=== PATIENT | male | born 1990 | race Caucasian/White ===

== ENCOUNTER 2020-12-26 00:19 | Emergency (ER) | payer MEDICAID, SELFPAY ==
[2020-12-26 00:46] VITALS: BP 131/70; PULSE 109; RESP 14; TEMP 37.4; O2SAT 96; BMI 28.0
--- NOTE | 2020-12-26 01:08 | ED_ITS ---
HPI - URI/Sore Throat General Chief Complaint: Upper Respiratory Symptoms Stated Complaint: covid symptoms Time Seen by Provider: 12/26/20 01:08 Source: patient Mode of arrival: ambulatory Limitations: no limitations History of Present Illness HPI Narrative: 30 y/o male presenting for evaluation of generalized body aches and pain, dry cough and not feeling well for the past 2 days. His son just tested positive for COVID yesterday. He is easily fatigued. He has no difficulty breathing or chest pain. He has no underlying medical problems. MD elicited complaint: cough and other (body aches) Onset (ago): day(s) (2) Consistency: constant Severity: moderate Able to tolerate fluids by mouth: Yes Exacerbating factors: exertion Relieving factors: nothing Context: sick contacts Associated symptoms: chills, myalgias, diaphoresis, headache, nasal congestion and cough Treatments prior to arrival: none Related Data Allergies Allergy/AdvReac Type Severity Reaction Status Date / Time No Known Allergies Allergy Verified 12/26/20 00:46 Review of Systems Review of Systems: Constitutional: No Fever, + Chills ENT/Mouth: + sore throat, No Rhinorrhea, No Swallowing Difficulty Cardiovascular: No Chest Pain, No SOB, No Orthopnea, No Edema Respiratory: + Cough, No Sputum, No Wheezing, No dyspnea Gastrointestinal: No Nausea, No Vomiting, No Diarrhea, No abdominal Pain Genitourinary: No Dysuria, No Urinary Frequency, No Hematuria Musculoskeletal: No joint pain, + Myalgias Skin: No Skin Lesions, No rash Neuro: No Weakness, No Numbness, No Dizziness, + Headache Physical Exam Vital Signs: Vital Signs: Last Vital Signs Temp 99.3 F 12/26/20 00:46 Pulse 109 H 12/26/20 00:46 Resp 14 12/26/20 00:46 BP 131/70 12/26/20 00:46 Pulse Ox 96 12/26/20 00:46 Body Mass Index 28.0 Appearance: Alert. Oriented X3. No acute distress. Eyes: Normal inspection ENT: Pharynx normal. Neck: Normal inspection. Neck supple. CVS: Normal heart rate and rhythm. Pulses normal. Respiratory: No respiratory distress. Breath sounds normal. Skin: Skin warm and dry. Normal skin color. Normal skin turgor. No rashes. Extremities: No lower extremity edema. Neuro: Oriented X 3. Nonfocal Course Course Course Narrative: 30 yo healthy male presenting with body aches, dry cough and not feeling well. Fatigues easily but no SOB, or respiratory distress. He appears nontoxic. Son has COVID-19. Mild tachycardia on arrival, normal rate on exam. Lungs are clear. COVID swab is POSITIVE. He was counseled on diagnosis, management and warning signs to prompt urgent re-evaluation. Stable for d/c home with supportive care. MDM - URI/Sore Throat Lab Data Labs: Lab Results 12/26/20 Range/Units 00:51 COVID-19 ([facility]) Positive A (Negative) COVID-19 Clin Com See Note Critical Care Time Critical Care Time Critical Care Time: No Discharge Plan Discharge Clinical Impression: COVID-19 Patient Disposition: Home, Self-Care Instructions: COVID-19 (Coronavirus Disease 2019) (ED) Additional Instructions: You were found to be COVID-19 POSITIVE today. Your exam and oxygen levels were normal. Rest. Drink plenty of fluids. Do not go out in public for the next 10 days. Take over the counter cold/flu medications as needed for your symptoms. Take Tylenol and/or Motrin as needed for fevers and body aches. Follow up with your doctor this week. If you shortness of breath worsens , if you develop difficulty breathing or any other concerning symptom come back to the ER for further evaluation. Print Language: [place]
[2020-12-26 01:09] LABS: IDNOW Serial# 9DD0AD1C
[2020-12-26 01:11] LABS: COVID-19 Test Positive (Negative)
== END 2020-12-26 01:50 | disposition home or self-care (01) ==
LOC: HO.ED 01:51
PROVIDERS: Emergency Provider Internal Medicine
DX: U07.1 COVID-19 (principal); M79.10 Myalgia, unspecified site; R05 Cough
CPT/HCPCS: 36415; 87635; 99283

== ENCOUNTER 2020-12-30 15:19 | Emergency (ER) | payer MEDICAID, SELFPAY ==
[2020-12-30 16:21] VITALS: BP 132/74; PULSE 109; RESP 20; TEMP 37.1; O2SAT 99; BMI 29.0
--- NOTE | 2020-12-30 19:15 | ED.GENADULT ---
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 Not eating and vomiting and is weak, shortness of breath. No Asthma no diabetes. Onset (ago): day(s) (8) Severity: mild Relieving factors: none Exacerbating factors: none Associated symptoms: cough, nausea/vomiting and weakness Related Data Previous Rx's Medication Instructions Recorded ondansetron HCl 4 mg tablet 4 mg PO Q8H PRN #10 tab 12/30/20 (Zofran) gtnimncdaygul-DN-hnbqrzefrrh 2.5 20 ml PO Q4H PRN #118 ml 12/30/20 mg-5 mg-50 mg/5 mL oral liquid (Robitussin Cough and Cold CF) Allergies Allergy/AdvReac Type Severity Reaction Status Date / Time No Known Allergies Allergy Verified 12/26/20 00:46 Review of Systems Constitutional: Constitutional: Reports no additional constitutional complaints Eyes: Eyes: Reports no additional eye complaints ENT: Denies dizziness Cardiovascular: Cardiovascular: Reports no additional cardiovascular complaints Respiratory: Respiratory: Reports as per HPI Gastrointestinal: Gastrointestinal: Reports no additional gastrointestinal complaints Musculoskeletal: Musculoskeletal: Reports no additional musculoskeletal complaints Integumentary/Breasts: Skin/Breast: Denies rash Neurologic: Reports system reviewed and no additional complaints, except as documented, Denies dizziness and Denies Sensory deficit (Neuro) Psychiatric: Psychiatric: Denies anxiety [facility] Social History Social History Advance Directives: No Advance Directives Information Provided: No Physical Exam Vital Signs: Vital Signs: Last Vital Signs Temp 98.7 F 12/30/20 16:21 Pulse 109 H 12/30/20 16:21 Resp 20 12/30/20 16:21 BP 132/74 12/30/20 16:21 Pulse Ox 99 12/30/20 16:21 Body Mass Index 29.0 Const: General: healthy appearing Nutritional Appearance: average body habitus Orientation/consciousness: oriented to person and patient oriented x3 Limitations: no limitations HENMT: Head: Yes normal to inspection Ears: external ears normal General nose exam: Normal external nose present Mouth: Normal oral and palatal mucosa present and oropharynx normal Throat: Yes posterior oropharynx normal Eyes: General: appearance normal, both eyes and all related structures Neck: Other: supple Neck: Yes normal visual inspection Chest: Chest palpation & inspection: normal inspection of the chest Resp: Auscultation: clear to auscultation bilaterally Cardio: Jugular venous distension: no JVD Rate: regular rate Rhythm: regular rhythm Heart sounds: S1 normal heart sound present and S2 normal heart sound present GI: Inspection: Yes normal to inspection Palpation (GI): Soft to palpation, nontender and No hepatosplenomegaly present Auscultation: normal bowel sounds : General: Yes no CVA tenderness Back/Spine/Pelvis: Back: no CVA tenderness Skin: General skin exam: no rashes or lesions noted Neuro: General: oriented to person and patient oriented x3 Cranial nerves: Yes CN's II-XII intact bilaterally Motor exam (neuro): 5/5 motor strength present throughout Sensory Exam: No Sensory deficit (Neuro) Extrem: General: Yes normal to inspection Psych: Appearance: grossly normal Course Reevaluation(s) Reevaluation #1: patient with COVID, looking well, will dc home Time: 21:08 Medical Decision Making Lab Data Result diagrams: 12/30/20 20:09 12/30/20 20:09 Labs: Lab Results 12/30/20 12/30/20 Range/Units 20:09 20:09 WBC 5.3 (4.8-10.8) X10*3/uL RBC 5.62 (4.60-5.80) X10*6/uL Hgb 14.6 (14.0-18.0) g/dl Hct 45.9 (42-52) % MCV 81.7 (80-98) fL MCH 26.0 L (27.0-33.0) pg MCHC 31.8 (31.0-36.0) g/dl RDW 13.4 (11.0-16.0) % Plt Count 224 (160-400) X10*3/uL MPV 9.4 (9.4-12.4) fL Immature Gran % (Auto) 0.2 (0.0-0.4) % Neut % (Auto) 60.4 (45-73) % Lymph % (Auto) 27.2 (20-40) % [place]oshone % (Auto) 12.0 H (2-11) % Eos % (Auto) 0.0 (0-4) % Baso % (Auto) 0.2 (0-2) % Lymph # (Auto) 1.4 (1.2-4.9) X10*3/uL [place] # (Auto) 0.6 (0.1-1.2) X10*3/uL Eos # (Auto) 0.0 (0.0-0.4) X10*3/uL Baso # (Auto) 0.0 (0.0-0.2) X10*3/uL Abs Immat Gran (auto) 0.01 (0.00-0.03) X10*3/uL Absolute Neuts (auto) 3.2 (2.0-8.3) X10*3/uL Absolute Nucleated RBC 0.000 (0.0-0.012) X10*3/uL Nucleated RBC % (auto) 0.0 (0.0-0.2) /100WBC Sodium 135 (135-145) mmol/L Potassium 4.1 (3.3-5.1) mmol/L Chloride 103 (96-108) mmol/L Carbon Dioxide 18 L (22-29) mmol/L Anion Gap 18 (12-20) BUN 9 (9-16) mg/dL Creatinine 0.84 (0.5-1.4) mg/dL Estim Creat Clear Calc 129.0 Estimated GFR > 60 Random Glucose 83 (60-115) mg/dL Calcium 8.7 (8.4-10.2) mg/dL Discharge Plan Discharge Clinical Impression: COVID-19 Patient Disposition: Home, Self-Care Instructions: COVID-19 (Coronavirus Disease 2019) (ED) Prescriptions: New ondansetron HCl [Zofran] 4 mg tablet 4 mg PO Q8H PRN (Reason: nausea and vomiting) Qty: 10 RF: 0 Robitussin Cough and Cold CF 2.5-5-50 mg/5 mL liquid 20 ml PO Q4H PRN (Reason: cough) Qty: 118 RF: 0 Referrals: Physician,Unknown [Primary Care Provider] - 1 week
[2020-12-30] MEDS: Ondansetron ODT 4 MG TAB.RAPDIS TRANSLINGU (20:10)
[2020-12-30 20:15] LABS: MANUAL DIFF FLAG NO
[2020-12-30 20:20] LABS: Basophils Percent Auto 0.2 % (0-2); Hematocrit 45.9 % (42-52); Hemoglobin 14.6 g/dl (14.0-18.0); Imm Gran Abs Auto 0.01 X10*3/uL (0.00-0.03); Imm Gran Pct Auto 0.2 % (0.0-0.4); Lymphocytes Absolute Auto 1.4 X10*3/uL (1.2-4.9); Lymphocytes Percent Auto 27.2 % (20-40); Mean Corpuscular HGB Conc 31.8 g/dl (31.0-36.0); Mean Corpuscular Volume 81.7 fL (80-98); Mean Platelet Volume 9.4 fL (9.4-12.4); Monocytes Absolute Auto 0.6 X10*3/uL (0.1-1.2); Neutrophils Absolute Auto 3.2 X10*3/uL (2.0-8.3); Neutrophils Percent Auto 60.4 % (45-73); Platelet Count 224 X10*3/uL (160-400); Red Blood Count 5.62 X10*6/uL (4.60-5.80); Red Cell Distribution Width 13.4 % (11.0-16.0); White Blood Count 5.3 X10*3/uL (4.8-10.8)
[2020-12-30 20:31] LABS: Anion Gap 18 (12-20); Blood Urea Nitrogen 9 mg/dL (9-16); Calcium 8.7 mg/dL (8.4-10.2); Carbon Dioxide 18 mmol/L (22-29); Chloride 103 mmol/L (96-108); Estimated Glomerular Filt Rate > 60; Glucose Random 83 mg/dL (60-115); Potassium 4.1 mmol/L (3.3-5.1); Sodium 135 mmol/L (135-145)
--- NOTE | 2020-12-30 20:38 | PC.NURSE ---
Patient A+ox4. Positive for COVID. VSS. C/O nausea and vomiting. Meds given per JUN. Labs drawn and sent. patient resting safely.
== END 2020-12-30 21:30 | disposition home or self-care (01) ==
PROVIDERS: Emergency Provider Emergency Medicine
DX: U07.1 COVID-19 (principal); Z79.899 Other long term (current) drug therapy
CPT/HCPCS: 36415; 80048; 85025; 99283; 99284

== ENCOUNTER 2021-09-17 13:46 | Outpatient (REF) | payer OTHER, SELFPAY ==
[2021-09-17 14:21] LABS: COVID-19 Test Negative (Negative); IDNOW Serial# 16C4AD1C
== END 2021-09-17 13:47 | disposition home or self-care (01) ==
LOC: HO.LAB 13:46
PROVIDERS: Visit Provider Internal Medicine
DX: Z20.822 Contact with and (suspected) exposure to COVID-19 (principal)
CPT/HCPCS: 87635; C9803

== ENCOUNTER 2021-09-28 17:21 | Emergency (ER) | payer OTHER, SELFPAY ==
[2021-09-28 18:11] VITALS: BP 130/81; PULSE 83; RESP 16; TEMP 36.1; O2SAT 97; BMI 30.7
--- NOTE | 2021-09-28 19:28 | ED.DENTAL ---
HPI - Dental/Oral General Chief complaint: Dental/Oral Stated complaint: tooth pain/ear pain Time Seen by Provider: 09/28/21 19:28 Source: patient Mode of arrival: ambulatory Limitations: no limitations History of Present Illness HPI Narrative: 31-year-old male presents with tooth pain x1 day worsening patient tells me he is having pain to 1 of the left lower teeth. He tells me he has had pain like this before however not the strong. He tells me the pain is so bad he feels like his ear hurts as well. Patient reports 10/10 pain. Denies difficulty speaking, shortness of breath, difficulty swallowing, fevers, chills, chest pain. Denies recent dental work., Complaint: tooth pain Teeth map: 1. patient reports pain to that tooth Onset (ago): day(s) Duration: constant Severity: severe Severity scale (1-10): 10 Relieving factors: nothing Exacerbating factors: nothing Treatment prior to arrival: none Related Data Previous Rx's Medication Instructions Recorded ondansetron HCl 4 mg tablet 4 mg PO Q8H PRN nausea and 12/30/20 (Zofran) vomiting #10 tabs ezyihcpmssruw-LZ-nboxhcomppg 2.5 20 ml PO Q4H PRN cough #118 mL 12/30/20 mg-5 mg-50 mg/5 mL oral liquid (Robitussin Cough and Cold CF) amoxicillin 500 mg capsule 500 mg PO BID #14 caps 09/28/21 oxycodone 5 mg capsule 5 mg PO BID PRN pain #6 caps 09/28/21 Allergies Allergy/AdvReac Type Severity Reaction Status Date / Time No Known Allergies Allergy Verified 12/26/20 00:46 Review of Systems Review of Systems: Constitutional : No Weight loss, No Fever, No Chills, No Fatigue, No Malaise ENT/Mouth : No sore throat, No Rhinorrhea, + tooth pain Eyes: No Eye Pain, No Swelling, No Redness Cardiovascular : No Chest Pain, No SOB, No Dyspnea on Exertion, No Orthopnea, No Edema, No Palpitations Respiratory : No Cough, No Sputum, No Wheezing Gastrointestinal : No Nausea, No Vomiting, No Diarrhea, No Constipation, No abdominal Pain, No Hematochezia, No Melena Genitourinary : No Dysuria, No Urinary Frequency, No Hematuria, Musculoskeletal : No joint pain, No Myalgias, No Joint Swelling Skin : No Skin Lesions, No rash Neuro : No Weakness, No Numbness, No Dizziness, No Headache Psych : No Anxiety/Panic, No Depression All other systems reviewed and are negative Yes all other systems are reviewed and are negative [facility] Past Medical History Attestation statement: The following information was validated with the patient. Source: old records reviewed and nursing notes reviewed Social History Social History Advance Directives: No Advance Directives Information Provided: Yes Physical Exam Vital Signs: Vital Signs: Last Vital Signs Temp 97.0 F 09/28/21 18:11 Pulse 83 09/28/21 18:11 Resp 16 09/28/21 18:11 BP 130/81 09/28/21 18:11 Pulse Ox 97 09/28/21 18:11 O2 Del Method 09/28/21 18:11 BMI result Body Mass Index 30.7 Vital signs stable Appearance: Alert.? Oriented X3.? No acute distress.? Head: Normocephalic, atraumatic, no step-offs or deformities Eyes: Pupils equal, round and reactive to light.? ENT: Pharynx normal.?+pain w/ palpation of tooth 17 Neck: Normal inspection.? Neck supple.? CVS: Normal heart rate and rhythm.? Pulses normal.? Respiratory: No respiratory distress.? Breath sounds normal.? Abdomen: Soft and nontender.? Skin: Skin warm and dry.? Normal skin color.? Normal skin turgor.? Extremities: No lower extremity edema.? No calf ttp. 5/5 strength to bilateral upper and lower extremities Back: No midline tenderness, no C-spine tenderness, full range of motion, no CVA tenderness bilaterally Neuro: Oriented X 3.? No motor deficit.? No sensory deficit. CN 2-12 intact Course Reevaluation(s) Reevaluation #1: Patient will be discharged home with amoxicillin and morphine. At this time patient will be discharged home with PCP and dental follow-up. Time: 20:17 MDM - Dental/Oral MDM Narrative Medical decision making narrative: 5 31 yo m presents w/ tooth pain X1 day. Denies recent tooth complaints PE pain w/ palpation of tooth 17. no cellulitis, abscess. Controlling secretions well. Uvula midline. Controlling secretions well. Speaking in full sentences. Regular rate and rhythm. Lungs clear. Abdomen soft nontender nondistended. No signs of dental abscess, peritonsillar abscess, epiglottitis. Plan at this time is to discharge patient home with dental follow-up. Medical Records Attestation: I reviewed the patient's medical records. Lab Data Attestation: I reviewed the patient's lab results. Critical Care Time Critical Care Time Critical Care Time: No Discharge Plan Discharge Clinical Impression: Toothache Patient Disposition: Home, Self-Care Instructions: Toothache (ED) Additional Instructions: Take your medications as prescribed. If you were prescribed antibiotics today, it is important that you take your medication to their entirety, do not skip any doses, do not finish them early. Follow-up with your primary care provider this week. Follow-up with dentist. Return to the emergency department with new or worsening symptoms. Such as fevers, chills, chest pain, shortness of breath, nausea, vomiting, dizziness, headache, vision changes, lethargy , difficulty speaking, difficulty swallowing, chest pain, shortness In case of emergency call 911 Prescriptions: New amoxicillin 500 mg capsule 500 mg PO BID Qty: 14 0RF oxycodone 5 mg capsule 5 mg PO BID PRN (Reason: pain) Qty: 6 0RF Rx Instructions: Partial Fill upon patient request. No Action ondansetron HCl [Zofran] 4 mg tablet 4 mg PO Q8H PRN (Reason: nausea and vomiting) Qty: 10 0RF Robitussin Cough and Cold CF 2.5-5-50 mg/5 mL liquid 20 ml PO Q4H PRN (Reason: cough) Qty: 118 0RF Referrals: Physician,Unknown J [Primary Care Provider] - 2 days Stand Alone Forms: Work/School Release
== END 2021-09-28 20:33 | disposition home or self-care (01) ==
PROVIDERS: Emergency Provider Internal Medicine
DX: K08.89 Other specified disorders of teeth and supporting structures (principal)
CPT/HCPCS: 99283

== ENCOUNTER 2022-02-14 21:34 | Emergency (ER) | payer OTHER, SELFPAY ==
[2022-02-14 21:40] VITALS: BP 125/83; PULSE 88; RESP 20; TEMP 36.2; O2SAT 97; BMI 33.7
[2022-02-14 22:48] LABS: Strep A Nucleic Acid Negative (Negative)
--- NOTE | 2022-02-14 23:06 | ED_ITS ---
HPI - General Adult General Chief complaint: General Medical Stated complaint: Headache/Sore throat Time Seen by Provider: 02/14/22 22:24 Source: patient Mode of arrival: ambulatory Limitations: no limitations History of Present Illness HPI narrative: 31 yold male preesnts to the ED for headache, sore throat, and nasall congestion. Patient states coworkers at work or sick. Related Data Previous Rx's Medication Instructions Recorded ondansetron HCl 4 mg tablet 4 mg PO Q8H PRN nausea and 12/30/20 (Zofran) vomiting #10 tabs cdljkrxbxqccp-JO-nnvurehtnog 2.5 20 ml PO Q4H PRN cough #118 mL 12/30/20 mg-5 mg-50 mg/5 mL oral liquid (Robitussin Cough and Cold CF) amoxicillin 500 mg capsule 500 mg PO BID #14 caps 09/28/21 oxycodone 5 mg capsule 5 mg PO BID PRN pain #6 caps 09/28/21 Allergies Allergy/AdvReac Type Severity Reaction Status Date / Time No Known Allergies Allergy Verified 12/26/20 00:46 [facility] Social History Social History Advance Directives: No Advance Directives Information Provided: No Physical Exam ED Vital Signs: Vital Signs - 24 hr 02/14/22 21:40 Temperature 97.1 F Pulse Rate 88 Respiratory Rate 20 Blood Pressure 125/83 Pulse Oximetry 97 Oxygen Delivery Method Room Air BMI result Body Mass Index 33.7 Const General: cooperative, healthy appearing, comfortable, no acute distress, well developed, alert, awake and Physically active Orientation/consciousness: oriented to time and patient oriented x3 HENMT Head: Yes normal to inspection, Yes No palpable skull fracture present, Yes normocephalic, Yes atraumatic and No abrasion Ears: hearing grossly normal bilaterally, external ears normal, TM's normal bilaterally, EAC's normal, mastoids normal and no periauricular adenopathy Throat: Yes posterior oropharynx normal, Yes tonsils normal and Yes uvula midline Eyes General: appearance normal, both eyes and all related structures Neck Neck: Yes normal visual inspection, Yes full ROM, Yes no lymphadenopathy, Yes no meningeal signs, Yes trachea midline, Yes supple, No anterior neck swelling and No tender Chest Chest palpation & inspection: normal inspection of the chest and normal palpation of entire chest wall Resp Effort & Inspection: normal respiratory effort and able to speak in complete sentences Auscultation: clear to auscultation bilaterally GI Inspection: Yes normal to inspection and No abdominal wall ecchymosis Palpation (GI): Soft to palpation, not firm, nontender, no guarding and not rigid General: No CVA tenderness and Yes no CVA tenderness Back/Spine/Pelvis Back: no CVA tenderness, No CVA tenderness and No back tenderness Skin General skin exam: no rashes or lesions noted and elasticity normal Neuro General: oriented to time, patient oriented x3, gait normal, tone normal, no meningeal signs and CN's II-XI intact bilaterally Cranial nerves: Yes CN's II-XII intact bilaterally Extrem General: Yes normal to inspection and Yes full ROM Psych Appearance: grossly normal, well kempt and not disheveled Course Course Course Narrative: SARS, and STREpr ordered Reevaluation(s) Reevaluation #1: SARS and STrep negative. patietn is safe for dsicharge. Time: 23:26 Medical Decision Making [facility] Narrative Medical decision making narrative: Viral syndrome Lab Data Labs: Lab Results 02/14/22 02/14/22 Range/Units 21:50 22:35 Influenza Type A (PCR) NEGATIVE (Negative) Influenza Type B (PCR) NEGATIVE (Negative) RSV RNA Qual (PCR) NEGATIVE (Negative) SARS-CoV-2 RNA (RT-PCR) NEGATIVE (Negative) S. pyogenes GrpA ZACK Negative (Negative) Discharge Plan Discharge Clinical Impression: Acute viral syndrome Patient Disposition: Home, Self-Care Instructions: Viral Syndrome (ED) Additional Instructions: Tiene SARS (Covid, RSV e INfluenza) y la prueba de estreptococo result? negativa. Por favor, duane un seguimiento con PCp. Regrese al servicio de urgencias por cualquier babeo, cambio de voz, dolor tor?cico, dificultad para respirar, tos con [place], rigidez en el nicole, dolor de agnes intenso, corinne balanitis, dolor abdominal, n?useas, v?mitos, disuria, hematuria, remington en las heces o cualquier otro concerniente a los s?ntomas. recomienda volver a realizar la prueba en 5 d?as desde el inicio de los s?ntomas. Prescriptions: No Action ondansetron HCl [Zofran] 4 mg tablet 4 mg PO Q8H PRN (Reason: nausea and vomiting) Qty: 10 0RF Robitussin Cough and Cold CF 2.5-5-50 mg/5 mL liquid 20 ml PO Q4H PRN (Reason: cough) Qty: 118 0RF amoxicillin 500 mg capsule 500 mg PO BID Qty: 14 0RF oxycodone 5 mg capsule 5 mg PO BID PRN (Reason: pain) Qty: 6 0RF Rx Instructions: Partial Fill upon patient request. Stand Alone Forms: Work/School Release Interventions: ED Discharge Assessment Last Done: 02/14/22 23:53 Discharge Date/Time: 02/14/22 23:54 Print Language: Nepali
[2022-02-14 23:09] LABS: Influenza A PCR NEGATIVE (Negative); Influenza B PCR NEGATIVE (Negative); Resp Syncy Virus RNA Qual PCR NEGATIVE (Negative); SARS COV2 PCR INHOUSE NEGATIVE (Negative)
== END 2022-02-14 23:54 | disposition home or self-care (01) ==
PROVIDERS: Physician Assistant; Emergency Provider Student in an Organized Health Care Education/Training Program
DX: B34.9 Viral infection, unspecified (principal); R51.9 Headache, unspecified; J02.9 Acute pharyngitis, unspecified; Z20.822 Contact with and (suspected) exposure to COVID-19
CPT/HCPCS: 0241U; 36415; 87651; 99282; 99283

== ENCOUNTER 2022-05-22 11:04 | Emergency (ER) | payer OTHER, SELFPAY ==
[2022-05-22 11:10] VITALS: BP 136/80; PULSE 102; RESP 20; TEMP 36.8; O2SAT 97; BMI 34.7
--- NOTE | 2022-05-22 11:32 | ED.GENADULT ---
HPI - General Adult General Chief complaint: Nausea/Vomiting/Diarrhea <HAMMAD Luu - Last Filed: 05/22/22 11:33> Stated complaint: Body aches, vomiting <HAMMAD Luu - Last Filed: 05/22/22 11:33> Time Seen by Provider: 05/22/22 14:33 <HAMMAD Luu Last Filed: 05/22/22 11:33> Source: patient <HAMMAD Le Last Filed: 05/22/22 16:19> Mode of arrival: ambulatory <HAMMAD Le Last Filed: 05/22/22 16:19> History of Present Illness HPI narrative: 32-year-old male with no significant past medical history presenting to ED complaining of URI symptoms including nasal congestion, sore throat, upper abdominal discomfort, nausea, vomiting, and diarrhea since yesterday. reports decreased p.o. intake. Son w/ similar symptoms. Denies known fever, chills, recent travel, suspicious food intake, SOB/CP <HAMMAD Le Last Filed: 05/22/22 16:19> Onset (ago): day(s) <HAMMAD Le Last Filed: 05/22/22 16:19> Related Data Home medications: Previous Rx's Medication Instructions Recorded ondansetron HCl 4 mg tablet 4 mg PO Q8H PRN nausea and 12/30/20 (Zofran) vomiting #10 tabs iewtpuhxneypx-CG-xcjeacrhink 2.5 20 ml PO Q4H PRN cough #118 mL 12/30/20 mg-5 mg-50 mg/5 mL oral liquid (Robitussin Cough and Cold CF) amoxicillin 500 mg capsule 500 mg PO BID #14 caps 09/28/21 oxycodone 5 mg capsule 5 mg PO BID PRN pain #6 caps 09/28/21 ondansetron 4 mg disintegrating 4 mg PO Q8H PRN nausea and 05/22/22 tablet vomiting #10 tabs <HAMMAD Luu Last Filed: 05/22/22 11:33> Allergies/adverse reactions: Allergies Allergy/AdvReac Type Severity Reaction Status Date / Time No Known Allergies Allergy Verified 12/26/20 00:46 <HAMMAD Luu Last Filed: 05/22/22 11:33> Review of Systems Review of Systems: Constitutional: No Fever, No Chills ENT/Mouth: No Ear Pain, + Nasal Congestion, No Sinus Pain, No Hoarseness, + sore throat, + Rhinorrhea, No Swallowing Difficulty Cardiovascular: No Chest Pain, No SOB Respiratory: No Cough, No Sputum, No Wheezing Gastrointestinal: + Nausea, + Vomiting, + Diarrhea, No Constipation, + Abdominal pain Genitourinary: No Dysuria, No Urinary Frequency, No Hematuria, No Flank Pain Musculoskeletal: No joint pain, No Myalgias, No Joint Swelling Skin: No Skin Lesions, No rash Neuro: No Weakness, No Numbness, No Paresthesias <HAMMAD Le Last Filed: 05/22/22 16:19> Yes all other systems are reviewed and are negative <HAMMAD Le Last Filed: 05/22/22 16:19> Constitutional: Constitutional: Reports as per HPI <HAMMAD Le - Last Filed: 05/22/22 16:19> [facility] Past Medical History Attestation statement: The following information was validated with the patient. <HAMMAD Le - Last Filed: 05/22/22 16:19> Social History Social History: Social History Advance Directives: No Advance Directives Information Provided: Yes <HAMMAD Luu Last Filed: 05/22/22 11:33> Physical Exam ED Vital Signs: Vital Signs - 24 hr 05/22/22 11:10 Temperature 98.3 F Pulse Rate 102 H Respiratory Rate 20 Blood Pressure 136/80 Pulse Oximetry 97 Oxygen Delivery Method Room Air BMI result Body Mass Index 34.7 <HAMMAD Luu Last Filed: 05/22/22 11:33> Vital Signs - 24 hr 05/22/22 11:10 Temperature 98.3 F Pulse Rate 102 H Respiratory Rate 20 Blood Pressure 136/80 Pulse Oximetry 97 Oxygen Delivery Method Room Air BMI result Body Mass Index 34.7 <HAMMAD Le Last Filed: 05/22/22 16:19> Const General: cooperative, healthy appearing and no acute distress <HAMMAD Le Last Filed: 05/22/22 16:19> Orientation/consciousness: patient oriented x3 <HAMMAD Le Last Filed: 05/22/22 16:19> Limitations: no limitations <HAMMAD Le Last Filed: 05/22/22 16:19> HENMT Head: Yes normal to inspection and Yes atraumatic <Jaky Damico [place] - Last Filed: 05/22/22 16:19> Ears: hearing grossly normal bilaterally, TM's normal bilaterally and mastoids normal <Jaky Damico [place] - Last Filed: 05/22/22 16:19> General nose exam: Normal external nose present <HAMMAD Le - Last Filed: 05/22/22 16:19> Face and sinus: Yes normal facial exam <HAMMAD Le Last Filed: 05/22/22 16:19> Mouth: Normal oral and palatal mucosa present, oropharynx normal and no drooling <HAMMAD Le - Last Filed: 05/22/22 16:19> Throat: Yes posterior oropharynx normal, Yes tonsils normal, Yes uvula midline and No peritonsillar mass <Jaky Damico [place] - Last Filed: 05/22/22 16:19> Eyes General: appearance normal, both eyes and all related structures <Jaky Damico [facility] Last Filed: 05/22/22 16:19> Pupils: Equal, round and reactive pupils present <HAMMAD Le Last Filed: 05/22/22 16:19> EOM: EOMs intact bilaterally <HAMMAD Le Last Filed: 05/22/22 16:19> Neck Neck: Yes normal visual inspection and Yes no meningeal signs <HAMMAD Le - Last Filed: 05/22/22 16:19> Resp Effort & Inspection: normal respiratory effort and no respiratory distress <HAMMAD Le Last Filed: 05/22/22 16:19> Auscultation: clear to auscultation bilaterally and no crackles <HAMMAD Le Last Filed: 05/22/22 16:19> Cardio Rate: regular rate <HAMMAD Le - Last Filed: 05/22/22 16:19> Heart sounds: S1 normal heart sound present and S2 normal heart sound present <HAMMAD Le - Last Filed: 05/22/22 16:19> GI Inspection: Yes normal to inspection <HAMMAD Le - Last Filed: 05/22/22 16:19> Palpation (GI): Soft to palpation, Tenderness to palpation present (GI) in the epigastrum ( mild); with no rebound tenderness, no guarding and not rigid <HAMMAD Le - Last Filed: 05/22/22 16:19> Skin Rashes: no rashes <HAMMAD Le - Last Filed: 05/22/22 16:19> Wounds: no wounds <HAMMAD Le - Last Filed: 05/22/22 16:19> Neuro General: patient oriented x3, tone normal and no meningeal signs <HAMMAD Le - Last Filed: 05/22/22 16:19> Cranial nerves: Yes Equal, round and reactive pupils present <HAMMAD eL - Last Filed: 05/22/22 16:19> Gait exam (Neuro): Normal gait present <HAMMAD Le - Last Filed: 05/22/22 16:19> Extrem General: Yes normal to inspection <HAMMAD Le - Last Filed: 05/22/22 16:19> Course Course Course Narrative: 11am - 32-year-old male presenting to the ER with his son at bedside with complaints of generalized, fatigue, malaise, nausea/vomiting/diarrhea and epigastric abdominal pain since yesterday. Reports he vomited twice today. Reports son and others at home have similar symptoms. Denies recent travel. Denies any fevers, cough, back pain, dysuria or any other symptoms complaints or concerns at this time. Plan: Patient will be sent back to the waiting room to be evaluated in the [facility]. COVID/RSV/flu swab ordered at this time. <HAMMAD Luu - Last Filed: 05/22/22 11:33> 11am - 32-year-old male presenting to the ER with his son at bedside with complaints of generalized, fatigue, malaise, nausea/vomiting/diarrhea and epigastric abdominal pain since yesterday. Reports he vomited twice today. Reports son and others at home have similar symptoms. Denies recent travel. Denies any fevers, cough, back pain, dysuria or any other symptoms complaints or concerns at this time. Plan: Patient will be sent back to the waiting room to be evaluated in the [facility]. COVID/RSV/flu swab ordered at this time. - COVID-19/influenza/ RSV negative. -1614-- Mild leukocytosis of 12.3 likely reactive from nausea/ vomiting. Labs otherwise unremarkable. -Pt tolerating PO in the ED without nausea or vomiting Results discussed with patient including worrisome signs and symptoms and strict return precautions, and when to return to the emergency department. They verbalized understanding and feel safe for discharge at this time. <HAMMAD Le - Last Filed: 05/22/22 16:19> Medications Administered Discontinued Medications Generic Name Dose Route Start Last Admin Trade Name Freq PRN Reason Stop Dose Admin Ondansetron HCl 4 mg 05/22/22 15:22 05/22/22 15:26 Ondansetron Odt 4 Mg Tab.Rapdis TRANSLINGU 05/22/22 15:23 4 mg ONCE ONE Administration <HAMMAD Luu - Last Filed: 05/22/22 11:33> Medications Administered Discontinued Medications Generic Name Dose Route Start Last Admin Trade Name Freq PRN Reason Stop Dose Admin Ondansetron HCl 4 mg 05/22/22 15:22 05/22/22 15:26 Ondansetron Odt 4 Mg Tab.Rapdis TRANSLINGU 05/22/22 15:23 4 mg ONCE ONE Administration <HAMMAD Le - Last Filed: 05/22/22 16:19> Medical Decision Making Medical Decision Making MDM Narrative: 32-year-old male with no significant past medical history presenting to ED complaining of URI symptoms including nasal congestion, sore throat, upper abdominal discomfort, nausea, vomiting, and diarrhea since yesterday. On exam mildly tachycardic likely from dehydration, NAD, nontoxic appearing, lungs CTA, abdomen soft with mild epigastric tenderness, no rebound or guarding, no CVA tenderness. Concern for viral illness including gastroenteritis. Rule out pancreatitis. Lower suspicion for cholecystitis/ lithiasis, appendicitis/ diverticulitis or pneumonia Plan: COVID-19/ influenza / RSV testing, labs, UA, sublingual Zofran, p.o. challenge Please refer to course for remaining clinical decision making, interpretation of labs/imaging results, and discussions with consultants and/or family members. <HAMMAD Le - Last Filed: 05/22/22 16:19> Differential Diagnosis Differential Diagnoses: The differential diagnosis associated with the presentation includes <HAMMAD Le - Last Filed: 05/22/22 16:19> as above <HAMMAD Le - Last Filed: 05/22/22 16:19> Lab Data MDM Lab Attestation statement: I reviewed the patient's lab results. <AHMMAD Le - Last Filed: 05/22/22 16:19> Result Diagrams: 05/22/22 15:38 05/22/22 15:38 <HAMMAD Luu - Last Filed: 05/22/22 11:33> Labs: Lab Results 05/22/22 05/22/22 05/22/22 Range/Units 11:18 15:38 15:38 WBC 12.3 H (4.8-10.8) X10*3/uL RBC 5.45 (4.60-5.80) X10*6/uL Hgb 13.9 L (14.0-18.0) g/dl Hct 44.4 (42.0-52.0) % MCV 81.5 (80.0-98.0) fL MCH 25.5 L (27.0-33.0) pg MCHC 31.3 (31.0-36.0) g/dl RDW 13.4 (11.0-16.0) % Plt Count 360 (160-400) X10*3/uL MPV 9.3 L (9.4-12.4) fL Immature Gran % (Auto) 0.2 (0.0-0.4) % Neut % (Auto) 65.3 (45-73) % Lymph % (Auto) 24.1 (20-40) % Lipscomb % (Auto) 9.3 (2-11) % Eos % (Auto) 0.9 (0-4) % Baso % (Auto) 0.2 (0-2) % Lymph # (Auto) 3.0 (1.2-4.9) X10*3/uL Lipscomb # (Auto) 1.1 (0.1-1.2) X10*3/uL Eos # (Auto) 0.1 (0.0-0.4) X10*3/uL Baso # (Auto) 0.0 (0.0-0.2) X10*3/uL Abs Immat Gran (auto) 0.03 (0.00-0.03) X10*3/uL Absolute Neuts (auto) 8.0 (2.0-8.3) x10*3/uL Absolute Nucleated RBC 0.000 (0.0-0.012) X10*3/uL Nucleated RBC % (auto) 0.0 (0.0-0.2) /100WBC Sodium 139 (135-145) mmol/L Potassium 3.8 (3.3-5.1) mmol/L Chloride 104 (96-108) mmol/L Carbon Dioxide 25 (22-29) mmol/L Anion Gap 14 (12-20) BUN 12 (9-16) mg/dL Creatinine 0.72 (0.5-1.4) mg/dL Estim Creat Clear Calc 140.0 Estimated GFR > 60 Random Glucose 98 (60-115) mg/dL Calcium 9.6 D (8.4-10.2) mg/dL Magnesium 1.9 (1.6-2.6) mg/dL Total Bilirubin 0.6 (0.0-1.0) mg/dL Direct Bilirubin 0.2 (0.0-0.5) mg/dL AST 17 (5-37) U/L ALT 29 (0-40) U/L Alkaline Phosphatase 75 (39-117) U/L Total Protein 7.2 (6.5-8.0) g/dL Albumin 4.4 (3.5-5.0) g/dL Lipase 17 (8-78) U/L Influenza Type A (PCR) NEGATIVE (Negative) Influenza Type B (PCR) NEGATIVE (Negative) RSV RNA Qual (PCR) NEGATIVE (Negative) SARS-CoV-2 RNA (RT-PCR) NEGATIVE (Negative) <HAMMAD Luu - Last Filed: 05/22/22 11:33> Lab Results 05/22/22 05/22/22 05/22/22 Range/Units 11:18 15:38 15:38 WBC 12.3 H (4.8-10.8) X10*3/uL RBC 5.45 (4.60-5.80) X10*6/uL Hgb 13.9 L (14.0-18.0) g/dl Hct 44.4 (42.0-52.0) % MCV 81.5 (80.0-98.0) fL MCH 25.5 L (27.0-33.0) pg MCHC 31.3 (31.0-36.0) g/dl RDW 13.4 (11.0-16.0) % Plt Count 360 (160-400) X10*3/uL MPV 9.3 L (9.4-12.4) fL Immature Gran % (Auto) 0.2 (0.0-0.4) % Neut % (Auto) 65.3 (45-73) % Lymph % (Auto) 24.1 (20-40) % Lipscomb % (Auto) 9.3 (2-11) % Eos % (Auto) 0.9 (0-4) % Baso % (Auto) 0.2 (0-2) % Lymph # (Auto) 3.0 (1.2-4.9) X10*3/uL Lipscomb # (Auto) 1.1 (0.1-1.2) X10*3/uL Eos # (Auto) 0.1 (0.0-0.4) X10*3/uL Baso # (Auto) 0.0 (0.0-0.2) X10*3/uL Abs Immat Gran (auto) 0.03 (0.00-0.03) X10*3/uL Absolute Neuts (auto) 8.0 (2.0-8.3) x10*3/uL Absolute Nucleated RBC 0.000 (0.0-0.012) X10*3/uL Nucleated RBC % (auto) 0.0 (0.0-0.2) /100WBC Sodium 139 (135-145) mmol/L Potassium 3.8 (3.3-5.1) mmol/L Chloride 104 (96-108) mmol/L Carbon Dioxide 25 (22-29) mmol/L Anion Gap 14 (12-20) BUN 12 (9-16) mg/dL Creatinine 0.72 (0.5-1.4) mg/dL Estim Creat Clear Calc 140.0 Estimated GFR > 60 Random Glucose 98 (60-115) mg/dL Calcium 9.6 D (8.4-10.2) mg/dL Magnesium 1.9 (1.6-2.6) mg/dL Total Bilirubin 0.6 (0.0-1.0) mg/dL Direct Bilirubin 0.2 (0.0-0.5) mg/dL AST 17 (5-37) U/L ALT 29 (0-40) U/L Alkaline Phosphatase 75 (39-117) U/L Total Protein 7.2 (6.5-8.0) g/dL Albumin 4.4 (3.5-5.0) g/dL Lipase 17 (8-78) U/L Influenza Type A (PCR) NEGATIVE (Negative) Influenza Type B (PCR) NEGATIVE (Negative) RSV RNA Qual (PCR) NEGATIVE (Negative) SARS-CoV-2 RNA (RT-PCR) NEGATIVE (Negative) <HAMMAD Le - Last Filed: 05/22/22 16:19> Discharge Plan Discharge Clinical Impression: Gastroenteritis, Acute viral syndrome <HAMMAD Luu - Last Filed: 05/22/22 11:33> Patient Disposition: Home, Self-Care <HAMMAD Luu - Last Filed: 05/22/22 11:33> Instructions: Gastroenteritis (ED), Viral Syndrome (ED) <HAMMAD Luu - Last Filed: 05/22/22 11:33> Additional Instructions: you tested negative for COVID, the flu, and RSV. Her blood work was reassuring. Zofran as antinausea medication, take as needed Please stay hydrated at home If symptoms persist or worsen, your unable to eat or drink developed fever unresolved with medications persistent or worsening symptoms return to the ED Follow-up with her doctor kristi negativo para COVID, gripe y RSV. Castelan an?lisis de [place] fue tranquilizador. Zofran corinne medicamento contra las n?useas, t?bennett seg?n sea necesario Por favor, mantente hidratado en casa. Si los s?ntomas persisten o empeoran, castelan incapacidad para comer o beber desarroll? fiebre que no se resolvi? con medicamentos. Los s?ntomas persistentes o empeorados regresan al servicio de urgencias. Seguimiento con casetlan m?dico <HAMMAD Luu - Last Filed: 05/22/22 11:33> Prescriptions: New ondansetron 4 mg tablet,disintegrating 4 mg PO Q8H PRN (Reason: nausea and vomiting) Qty: 10 0RF No Action ondansetron HCl [Zofran] 4 mg tablet 4 mg PO Q8H PRN (Reason: nausea and vomiting) Qty: 10 0RF Robitussin Cough and Cold CF 2.5-5-50 mg/5 mL liquid 20 ml PO Q4H PRN (Reason: cough) Qty: 118 0RF amoxicillin 500 mg capsule 500 mg PO BID Qty: 14 0RF oxycodone 5 mg capsule 5 mg PO BID PRN (Reason: pain) Qty: 6 0RF Rx Instructions: Partial Fill upon patient request. <HAMMAD Luu - Last Filed: 05/22/22 11:33> Referrals: Dario Rico MD [Primary Care Provider] - <HAMMAD Luu - Last Filed: 05/22/22 11:33> Print Language: Lao <HAMMAD Luu - Last Filed: 05/22/22 11:33>
[2022-05-22 12:06] LABS: Influenza A PCR NEGATIVE (Negative); Influenza B PCR NEGATIVE (Negative); Resp Syncy Virus RNA Qual PCR NEGATIVE (Negative); SARS COV2 PCR INHOUSE NEGATIVE (Negative)
[2022-05-22] MEDS: Ondansetron ODT 4 MG TAB.RAPDIS TRANSLINGU (15:26)
[2022-05-22 15:43] LABS: Basophils Percent Auto 0.2 % (0-2); Eosinophils Absolute Auto 0.1 X10*3/uL (0.0-0.4); Eosinophils Percent Auto 0.9 % (0-4); Hematocrit 44.4 % (42.0-52.0); Hemoglobin 13.9 g/dl (14.0-18.0); Imm Gran Abs Auto 0.03 X10*3/uL (0.00-0.03); Imm Gran Pct Auto 0.2 % (0.0-0.4); Lymphocytes Percent Auto 24.1 % (20-40); MANUAL DIFF FLAG NO; Mean Corpuscular HGB Conc 31.3 g/dl (31.0-36.0); Mean Corpuscular Hemoglobin 25.5 pg (27.0-33.0); Mean Corpuscular Volume 81.5 fL (80.0-98.0); Mean Platelet Volume 9.3 fL (9.4-12.4); Monocytes Absolute Auto 1.1 X10*3/uL (0.1-1.2); Monocytes Percent Auto 9.3 % (2-11); Neutrophils Percent Auto 65.3 % (45-73); Platelet Count 360 X10*3/uL (160-400); Red Blood Count 5.45 X10*6/uL (4.60-5.80); Red Cell Distribution Width 13.4 % (11.0-16.0); White Blood Count 12.3 X10*3/uL (4.8-10.8)
[2022-05-22 16:01] LABS: Alanine Aminotransferase 29 U/L (0-40); Albumin Level 4.4 g/dL (3.5-5.0); Alkaline Phosphatase 75 U/L (39-117); Anion Gap 14 (12-20); Aspartate Amino Transferase 17 U/L (5-37); Bilirubin Direct 0.2 mg/dL (0.0-0.5); Bilirubin Total 0.6 mg/dL (0.0-1.0); Blood Urea Nitrogen 12 mg/dL (9-16); Calcium 9.6 mg/dL (8.4-10.2); Carbon Dioxide 25 mmol/L (22-29); Chloride 104 mmol/L (96-108); Estimated Glomerular Filt Rate > 60; Glucose Random 98 mg/dL (60-115); Lipase 17 U/L (8-78); Magnesium 1.9 mg/dL (1.6-2.6); Potassium 3.8 mmol/L (3.3-5.1); Sodium 139 mmol/L (135-145); Total Protein 7.2 g/dL (6.5-8.0)
== END 2022-05-22 16:26 | disposition home or self-care (01) ==
PROVIDERS: Physician Assistant; Physician Assistant Medical; Emergency Provider Emergency Medicine; PCP Internal Medicine Medical Oncology
DX: K52.9 Noninfective gastroenteritis and colitis, unspecified (principal); B34.9 Viral infection, unspecified; M79.10 Myalgia, unspecified site; R11.2 Nausea with vomiting, unspecified; Z20.822 Contact with and (suspected) exposure to COVID-19; Z20.828 Contact with and (suspected) exposure to other viral communicable diseases; Z79.899 Other long term (current) drug therapy
CPT/HCPCS: 0241U; 36415; 80048; 80076; 83690; 83735; 85025; 99282; 99283

== ENCOUNTER 2022-07-08 17:17 | Emergency (ER) | payer OTHER, MEDICAID, SELFPAY ==
[2022-07-08 17:36] VITALS: BP 141/83; PULSE 98; RESP 18; TEMP 36.6; O2SAT 98; BMI 34.3
--- NOTE | 2022-07-08 17:36 | ED.UPPEXIN ---
HPI - Extremity Injury (Upper) General Chief Complaint: Extremity Injury, Upper Stated Complaint: finger inj Related Data Previous Rx's Medication Instructions Recorded ondansetron HCl 4 mg tablet 4 mg PO Q8H PRN nausea and 12/30/20 (Zofran) vomiting #10 tabs uajrabvribufy-DM-fftdajswgic 2.5 20 ml PO Q4H PRN cough #118 mL 12/30/20 mg-5 mg-50 mg/5 mL oral liquid (Robitussin Cough and Cold CF) amoxicillin 500 mg capsule 500 mg PO BID #14 caps 09/28/21 oxycodone 5 mg capsule 5 mg PO BID PRN pain #6 caps 09/28/21 ondansetron 4 mg disintegrating 4 mg PO Q8H PRN nausea and 05/22/22 tablet vomiting #10 tabs Allergies Allergy/AdvReac Type Severity Reaction Status Date / Time No Known Allergies Allergy Verified 12/26/20 00:46 Physical Exam Vital Signs: Vital Signs: Last Vital Signs Temp 98 F 07/08/22 17:36 Pulse 98 07/08/22 17:36 Resp 18 07/08/22 17:36 BP 141/83 H 07/08/22 17:36 Pulse Ox 98 07/08/22 17:36 BMI result Body Mass Index 34.3 Course Course Course Narrative: RME - 32 yo male presents to the ER for left middle finger pain and swelling for the last 2 days. Exam is consistent w/ significant paronychia. Will require I&D. Discharge Plan Discharge Prescriptions: No Action ondansetron HCl [Zofran] 4 mg tablet 4 mg PO Q8H PRN (Reason: nausea and vomiting) Qty: 10 0RF Robitussin Cough and Cold CF 2.5-5-50 mg/5 mL liquid 20 ml PO Q4H PRN (Reason: cough) Qty: 118 0RF amoxicillin 500 mg capsule 500 mg PO BID Qty: 14 0RF oxycodone 5 mg capsule 5 mg PO BID PRN (Reason: pain) Qty: 6 0RF Rx Instructions: Partial Fill upon patient request. ondansetron 4 mg tablet,disintegrating 4 mg PO Q8H PRN (Reason: nausea and vomiting) Qty: 10 0RF
[2022-07-08] MEDS: Lidocaine HCl 1 % 20 ML VIAL 5 ML INFILTRATI (19:02)
--- NOTE | 2022-07-08 19:10 | ED.EXTPRO ---
HPI - Extremity Problem General Chief complaint: Extremity Injury, Upper Stated complaint: finger inj Time Seen by Provider: 07/08/22 18:58 Source: patient Limitations: no limitations History of Present Illness HPI Narrative: Patient with pain in his left middle finger for the past several days. He states it is swollen and very red around the fingernail base. No injuries. No prior history of similar issues No fevers or chills No pain in his hand proximal to the affected finger Related Data Previous Rx's Medication Instructions Recorded ondansetron HCl 4 mg tablet 4 mg PO Q8H PRN nausea and 12/30/20 (Zofran) vomiting #10 tabs ntzfkunquqagv-QV-txsyrirteqt 2.5 20 ml PO Q4H PRN cough #118 mL 12/30/20 mg-5 mg-50 mg/5 mL oral liquid (Robitussin Cough and Cold CF) amoxicillin 500 mg capsule 500 mg PO BID #14 caps 09/28/21 oxycodone 5 mg capsule 5 mg PO BID PRN pain #6 caps 09/28/21 ondansetron 4 mg disintegrating 4 mg PO Q8H PRN nausea and 05/22/22 tablet vomiting #10 tabs cephalexin 500 mg tablet 1,000 mg PO Q12H #40 tabs 07/08/22 doxycycline hyclate 100 mg capsule 100 mg PO BID #20 caps 07/08/22 ibuprofen 800 mg tablet 800 mg PO TID PRN pain #30 tabs 07/08/22 Allergies Allergy/AdvReac Type Severity Reaction Status Date / Time No Known Allergies Allergy Verified 12/26/20 00:46 Review of Systems Constitutional: Comments: No fevers or chills Physical Exam Vital Signs: Vital Signs: Last Vital Signs Temp 98 F 07/08/22 17:36 Pulse 98 07/08/22 17:36 Resp 18 07/08/22 17:36 BP 141/83 H 07/08/22 17:36 Pulse Ox 98 07/08/22 17:36 BMI result Body Mass Index 34.3 Const: Other: Awake alert. No acute distress Resp: Other: No respiratory distress Neuro: Other: Ambulates without difficulty Extrem: Other: Left middle finger with large paronychia extending from medial to lateral aspect. No purulent drainage but obvious fluctuance.. No proximal erythema or evidence of spreading cellulitis. Patient with limited range flexing. No pain in the flexor tendon however. No tenderness over the flexor tendon. Medications Administered Discontinued Medications Generic Name Dose Route Start Last Admin Trade Name Freq PRN Reason Stop Dose Admin Lidocaine HCl 5 ml 07/08/22 17:38 07/08/22 19:02 Lidocaine Hcl 1 % 20 Ml Vial INFILTRATI 07/08/22 17:39 5 ml ONCE ONE Administration Procedures Abscess I/D Site: other (Finger, left middle) Side (if applicable): left Local Anesthetic: lidocaine 1% (Digital block performed. Patient with moderate anesthesia. Minimal pain with incision but moderate pain with pressure assess) Amount of anesthesia used (mL): 6 Technique: incised with blade Amount of fluid expressed (mL): 2 Sent for culture/gram staining?: No Packing used?: none Complications: pain Discharge Plan Discharge Clinical Impression: Paronychia of finger of left hand Patient Disposition: Home, Self-Care Instructions: Paronychia (ED) Additional Instructions: Warm soaks at least 4 times a day Prescriptions: New cephalexin 500 mg tablet 1,000 mg PO Q12H Qty: 40 0RF doxycycline hyclate 100 mg capsule 100 mg PO BID Qty: 20 0RF ibuprofen 800 mg tablet 800 mg PO TID PRN (Reason: pain) Qty: 30 0RF No Action ondansetron HCl [Zofran] 4 mg tablet 4 mg PO Q8H PRN (Reason: nausea and vomiting) Qty: 10 0RF Robitussin Cough and Cold CF 2.5-5-50 mg/5 mL liquid 20 ml PO Q4H PRN (Reason: cough) Qty: 118 0RF amoxicillin 500 mg capsule 500 mg PO BID Qty: 14 0RF oxycodone 5 mg capsule 5 mg PO BID PRN (Reason: pain) Qty: 6 0RF Rx Instructions: Partial Fill upon patient request. ondansetron 4 mg tablet,disintegrating 4 mg PO Q8H PRN (Reason: nausea and vomiting) Qty: 10 0RF
[2022-07-08] MEDS: cephALEXin 500 MG CAPSULE 1000 MG PO (19:39)
[2022-07-08] MEDS: Ibuprofen 800 MG TABLET PO (19:39)
[2022-07-08] MEDS: Doxycycline Monohydrate 100 MG CAPSULE PO (19:39)
== END 2022-07-08 19:52 | disposition home or self-care (01) ==
PROVIDERS: Emergency Provider Emergency Medicine
DX: S61.213A Laceration without foreign body of left middle finger without damage to nail, initial encounter (principal); L03.012 Cellulitis of left finger; X58.XXXA Exposure to other specified factors, initial encounter; Y93.9 Activity, unspecified; Y92.9 Unspecified place or not applicable; Y99.9 Unspecified external cause status; Z79.899 Other long term (current) drug therapy
CPT/HCPCS: 10060; 99283; 99284